=== PATIENT | male | born 1955 | race Caucasian/White ===

== ENCOUNTER 2019-09-22 08:50 | Day surgery (SDC) | payer MEDICARE, BC ==
[~2019-09-22 08:50] MED LIST: Midazolam 1 MG/ML 2 ML SDV ONE; Propofol 200 MG/20 ML SDV ONE; Sodium Chloride 0.9% 10 ML Syringe FLUSH PRN
[2019-09-22] MEDS ORDERED: Lactated Ringers 1,000 ML IV SCH (09:00)
--- NOTE | 2019-09-22 09:39 | PCM.HPR ---
H & P Addendum review - H & P Addendum Review Date of Original H & P: 09/08/19 Date Reviewed: 09/22/19 Time Reviewed: 09:38 Patient was Examined: No Changes
[2019-09-22] MEDS ORDERED: Propofol 200 MG/20 ML SDV ONE (09:48)
[2019-09-22] MEDS ORDERED: Midazolam 1 MG/ML 2 ML SDV ONE (09:48)
--- NOTE | 2019-09-22 10:26 | PCM.OPNOTE ---
- General Post-Op/Procedure Note Date of Surgery/Procedure: 09/22/19 Operative Procedure(s): Colonoscopy with polypectomy Findings: small polyps Pre Op Diagnosis: Hx Polyps Post-Op Diagnosis: Same Anesthesia Technique: MAC Primary Surgeon: Rey Vasquez Anesthesia Provider: Norah Anderson Complications: None Condition: Good
--- NOTE | 2019-09-22 11:24 | OR ---
Date of Procedure: 09/22/2019 PREOPERATIVE DIAGNOSIS: History of colon polyps. POSTOPERATIVE DIAGNOSIS: Colon polyps. PROCEDURE: Colonoscopy with polypectomy. ANESTHESIA: IV sedation. DESCRIPTION OF PROCEDURE: The patient was brought to the procedure room where he was placed on his left side and IV sedation administered. Digital rectal exam was performed which was normal. Colonoscope was inserted and advanced to the level of the cecum with some difficulty getting through a tortuous sigmoid colon, requiring change to the supine position. Cecum was reached and confirmed by identifying the appendiceal lumen and the ileocecal valve. Prep was good and surfaces were well visualized. Upon withdrawing the scope, the ascending, transverse, and descending colon were normal in appearance. Sigmoid colon has a 6 mm sessile polyp located 20 cm from the anal verge that was removed with a cautery snare. Rectum has a 5 mm sessile polyp located 10 cm from the anal verge that was also removed with the cautery snare. These were sent for pathology review. Retroflexion was normal. Air was removed and the scope withdrawn. The patient tolerated the procedure well and returned to Recovery in stable condition. The patient will be contacted with the pathology report when it returns. If either polyp is adenomatous, he should undergo a repeat colonoscopy again in 3 years. If both polyps are hyperplastic, he could wait 5 years until his next surveillance colonoscopy. CHARLEY TALAVERA MD /[id number]
[2019-09-22 11:54] VITALS: BP 96/61; PULSE 71
== END 2019-09-22 12:15 | disposition home or self-care (01) ==
LOC: LL.SDS 08:50
PROVIDERS: ATTEND Surgery
DX: K63.5 Polyp of colon (principal); K62.1 Rectal polyp; Q43.8 Other specified congenital malformations of intestine; K21.9 Gastro-esophageal reflux disease without esophagitis; E78.2 Mixed hyperlipidemia; I10 Essential (primary) hypertension; I25.10 Atherosclerotic heart disease of native coronary artery without angina pectoris; M15.9 Polyosteoarthritis, unspecified; M47.22 Other spondylosis with radiculopathy, cervical region; E78.00 Pure hypercholesterolemia, unspecified; Z87.891 Personal history of nicotine dependence; Z88.8 Allergy status to other drugs, medicaments and biological substances; Z86.010 Personal history of colon polyps; Z79.899 Other long term (current) drug therapy; Z79.82 Long term (current) use of aspirin; Z88.1 Allergy status to other antibiotic agents
CPT/HCPCS: 00812; 45385; 88305; J2250; J2704; J7120